=== PATIENT | female | born 1960 | race Caucasian/White ===

== ENCOUNTER 2017-07-05 12:02 | Day surgery (SDC) | payer OTHER ==
[2017-07-05] MEDS ORDERED: LACTATED RINGERS 1,000 ML IV ONE ×2 (12:13→13:06)
--- NOTE | 2017-07-05 12:36 | HISTORY & PHYSICAL EXAMINATION ---
HPI - History of Present Illness HPI Comment/Other: Patient here for colonoscopy for history of GI bleed: Mrs. Cherry Is here in consultation for a GI bleed. She states that approximately 2 weeks ago she was having her coffee in the morning and felt faint, flushed and nauseated and then had the urgency to have a bowel movement. When she had her bowel movement she noted multiple dark blood clots mixed with formed stool. This happened one additional time and she went to the emergency department. She was discharged home and had 2 subsequent episodes which were less bloody and not associated with any other symptoms. The bleeding has since stopped. She denies any associated diarrhea or severe abdominal pain with the bleeding.She states that approximately 2 months ago she was started on Metformin and since that time she has had cramping abdominal pain and loose stools. She has never had a colonoscopy. She has no family history of colon cancer or inflammatory bowel disease. To her knowledge she does not have any hemorrhoids and has never had any hemorrhoidal associated bleeding. She does have COPD and CHF. She was hospitalized in 2013 for CHF exacerbation and since the hospitalization she has been on Lasix and her symptoms have been well controlled. She does require oxygen at home and takes 2 L at night with her CPAP and Does require 3 L of oxygen during the day with exertion. She does continue to smoke smoking approximately half a pack per day. The patient additionally complains about an umbilical hernia which has been increasing in size of the past few years.Current Meds: ADULT ASPIRIN EC LOW STRENGTH 81 MG ORAL TABLET DELAYED RELEASE (ASPIRIN) take one tab by mouth daily [facility] FISH OIL 1000 MG ORAL CAPSULE (OMEGA-3 FATTY ACIDS) take one tab by mouth daily DAILY MULTIVITAMIN ORAL CAPSULE (MULTIPLE VITAMINS-MINERALS) take one tab by mouth daily LIQUAFIBER 5 GM/15ML ORAL LIQUID (FIBER) take two tabs by mouth daily METFORMIN HCL 500 MG ORAL TABLET (METFORMIN HCL) take one tab by mouth daily STIOLTO RESPIMAT 2.5-2.5 MCG/ACT INHALATION AEROSOL SOLUTION (TIOTROPIUM BROMIDE -OLODATEROL) take two puffs FUROSEMIDE 40 MG ORAL TABLET (FUROSEMIDE) take one tab by mouth daily WELLBUTRIN SR 150 MG ORAL TABLET EXTENDED RELEASE 12 HOUR (BUPROPION HCL) take one tab by mouth daily DILTIAZEM HCL ER 180 MG ORAL CAPSULE EXTENDED RELEASE 24 HOUR (DILTIAZEM HCL) take two tab by mouth daily SPIRONOLACTONE 25 MG ORAL TABLET (SPIRONOLACTONE) take one tab by mouth daily LOSARTAN POTASSIUM 100 MG ORAL TABLET (LOSARTAN POTASSIUM) take one tab by mouth daily Past Medical History: Reviewed history and no changes required: Congestive Heart Failure High Blood Pressure Shortness of Breath CPAP Machine Panic Attacks Claustrophobia DMII COPD Past Surgical History: Reviewed history and no changes required: Tonsilectomy Family History Summary: Reviewed history and no changes required: 05/30/2017 Mother () - Has Family History of Diabetes - Entered On: 05/30/2017 Social History: Reviewed history and no changes required: Risk Factors: Smoked Tobacco Use: Current every day smoker Cigarettes: Yes -- 0.5 pack(s) per day,Drug use: no Alcohol use: yes Type: red wine Exercise: no Review of Systems General Denies fever and weight loss. GI Complains of abdominal pain and hematochezia. CV Denies chest pains. Resp Complains of shortness of breath. Psych Complains of anxiety. Heme Complains of bleeding. Medications were reviewed with the patient during this visit. Allergies were reviewed with the patient during this visit. Allergies: ATENOLOL (ATENOLOL) (Severe) * CLONIDINE (Severe) Physical Exam General: normal appearance and obese. Lungs: Diminished breath sounds bilaterally Heart: regular rate and rhythm, S1, S2 without murmurs, rubs, gallops, or clicks Abdomen: bowel sounds positive; abdomen soft and non-tender without masses, organomegaly, or hernias noted Pulses: pulses normal in all 4 extremities Extremities: no clubbing, cyanosis, edema, or deformity noted with normal full range of motion of all joints Cervical Nodes: no significant adenopathy Psych: alert and cooperative; normal mood and affect; normal attention span and concentration Impression & Recommendations: Problem # 1: Hematochezia will proceed with colonoscopy PMH/PSH - Past Medical History Cardiovascular: positive: Congestive heart failure, Hypertension, Murmur, Arrhythmia Respiratory: positive: Asthma, COPD, Emphysema, Shortness of breath, Sleep apnea , CPAP use Endocrine/Autoimmune: positive: Type 2 diabetes GI: positive: GI bleed, Cholelithiasis, Other : positive: Frequency HEENT: positive: Chronic vision loss, Chronic sinusitis, Other Psych: positive: Anxiety, Panic attacks, Claustrophobia Musculoskeletal: positive: None Derm: positive: None MRSA Hx?: No - Past Surgical History HEENT: positive: Tonsil/Adenoidectomy Social & Family Hx - Social History ETOH Use: Wine Meds/Allgy - Home Medications Home Medications: Ambulatory Orders Medication Instructions Recorded Confirmed Aspirin [Aspirin EC] 81 mg PO DAILY 06/27/17 06/27/17 Bupropion HCl [Bupropion HCl Sr] 150 mg PO DAILY 06/27/17 06/27/17 Diltiazem HCl [Diltiazem ER] 180 mg PO BID 06/27/17 06/27/17 Furosemide 40 mg PO DAILY 06/27/17 06/27/17 Losartan [Cozaar] 100 mg PO DAILY 06/27/17 06/27/17 Multivitamin [Multiple Vitamins] 1 each PO BID 06/27/17 06/27/17 [place]-3/Dha/Epa/Fish Oil [Fish Oil 1 each PO DAILY 06/27/17 06/27/17 1,000 mg Softgel] Psyllium Husk [Fiber] 0.52 gm PO BID 06/27/17 06/27/17 Spironolactone 25 mg PO DAILY 06/27/17 06/27/17 - Allergies Allergies/Adverse Reactions: Allergies Allergy/AdvReac Type Severity Reaction Status Date / Time atenolol Allergy Anaphylaxis Verified 06/27/17 13:46 clonidine Allergy Hives Verified 06/27/17 13:46 metformin AdvReac GI symptoms Verified 06/27/17 13:46 Exam - Vital Signs Vital Signs: Vital Signs x48h Temp Pulse Resp BP Pulse Ox 07/05/17 12:18 36.8 C 105 H 16 152/94 H 92
[2017-07-05] MEDS ORDERED: LIDOCAINE-MPF 2% 5 ML VIAL IM ONE (13:00)
[2017-07-05] MEDS ORDERED: MIDAZOLAM 2 MG/2 ML VIAL IVP ONE (13:00)
[2017-07-05] MEDS ORDERED: PROPOFOL 200 MG/20 ML VIAL IVP ONE (13:00)
[2017-07-05 14:32] VITALS: BP 148/86
== END 2017-07-05 12:03 | disposition home or self-care (01) ==
LOC: SDS 12:02
PROVIDERS: ATTEND Surgery
PROC: 0DBN8ZX Excision of Sigmoid Colon, Via Natural or Artificial Opening Endoscopic, Diagnostic (ICD-10-PCS; 2017-07-05)
PROC: 0DBP8ZX Excision of Rectum, Via Natural or Artificial Opening Endoscopic, Diagnostic (ICD-10-PCS; 2017-07-05)
PROC: 0DBK8ZX Excision of Ascending Colon, Via Natural or Artificial Opening Endoscopic, Diagnostic (ICD-10-PCS; principal; 2017-07-05 09:45)
DX: D12.2 Benign neoplasm of ascending colon (principal); K64.8 Other hemorrhoids; K63.5 Polyp of colon; K92.1 Melena; K62.89 Other specified diseases of anus and rectum; K57.30 Diverticulosis of large intestine without perforation or abscess without bleeding; E11.9 Type 2 diabetes mellitus without complications; J44.9 Chronic obstructive pulmonary disease, unspecified; I11.0 Hypertensive heart disease with heart failure; I50.9 Heart failure, unspecified; Z79.84 Long term (current) use of oral hypoglycemic drugs; Z79.82 Long term (current) use of aspirin; F41.9 Anxiety disorder, unspecified; G47.30 Sleep apnea, unspecified; F17.210 Nicotine dependence, cigarettes, uncomplicated
CPT/HCPCS: 45380; J7120

== ENCOUNTER 2019-04-15 13:40 | Observation (INO) | payer OTHER ==
--- NOTE | 2019-04-15 13:51 | ED Physician Documentation ---
PD HPI GI BLEED - Stated complaint Stated Complaint: RECTAL BLEED - Chief complaint Chief Complaint: Abd Pain - History obtained from History obtained from: Patient - History of Present Illness Timing - onset: How many hours ago Timing - duration: Hours Timing - details: Abrupt onset Severity Comments: moderate, 6 bloody bowel movements Associated symptoms: Maroon stool, Abdominal pain. No: Vomiting, Coffee ground emesis, Hematemesis, Black/tarry stool, Diarrhea, Constipation, Chest pain, Fever, Dizzy, Near syncope / syncope Contributing factors: Other (prior hx of diverticulosis and GI bleeding, not anticoagulated). No: NSAID use, Anticoagulated Improved by: Other (nothing) Worsened by: Other (bowel movements) Similar symptoms before: Other (has a prior hx of GI bleeding in July 2017 and had a colonoscopy at that time demonstrating divertuclosis) Recently seen: Not recently seen Review of Systems Ten Systems: 10 systems reviewed and negative Constitutional: denies: Fever Cardiac: reports: Reviewed and negative. denies: Chest pain / pressure Respiratory: reports: Reviewed and negative GI: reports: Abdominal Pain, Bloody / black stool. denies: Abdominal Swelling, Nausea, Vomiting, Constipation, Diarrhea, Hematemesis : reports: Reviewed and negative Skin: reports: Reviewed and negative Musculoskeletal: reports: Reviewed and negative Neurologic: reports: Reviewed and negative Endocrine: denies: Easy bruising / bleeding Immunocompromised: reports: Reviewed and negative PD PAST MEDICAL HISTORY - Past Medical History Past Medical History: Yes Cardiovascular: Congestive heart failure, Hypertension, Murmur, Arrhythmia Respiratory: Asthma, COPD, Emphysema, Shortness of breath, Sleep apnea, CPAP use Endocrine/Autoimmune: Type 2 diabetes GI: GI bleed, Cholelithiasis, Other : Frequency HEENT: Chronic vision loss, Chronic sinusitis, Other Psych: Anxiety, Panic attacks, Claustrophobia Musculoskeletal: None Derm: None - Past Surgical History HEENT: Tonsil/Adenoidectomy - Present Medications Home Medications: Ambulatory Orders Medication Instructions Recorded Confirmed Aspirin [Aspirin EC] 81 mg PO QPM 06/27/17 04/15/19 Furosemide 40 mg PO DAILY 06/27/17 04/15/19 Losartan [Cozaar] 100 mg PO DAILY 06/27/17 04/15/19 Multivitamin [Multiple Vitamins] 1 tab PO DAILY 06/27/17 04/15/19 Spironolactone 25 mg PO DAILY 06/27/17 04/15/19 dilTIAZem HCl [Diltiazem ER] 180 mg PO BID 06/27/17 04/15/19 Bupropion HCl [Bupropion Xl] 150 mg PO DAILY 04/15/19 04/15/19 SITagliptin [Januvia] 100 mg PO QPM 04/15/19 04/15/19 Varenicline Tartrate [Chantix] 1 mg PO BID 04/15/19 04/15/19 - Allergies Allergies/Adverse Reactions: Allergies Allergy/AdvReac Type Severity Reaction Status Date / Time atenolol Allergy Anaphylaxis Verified 06/27/17 13:46 clonidine Allergy Hives Verified 06/27/17 13:46 metformin AdvReac GI symptoms Verified 06/27/17 13:46 PD ED PE NORMAL - Vitals Vital signs reviewed: Yes - General General: Alert and oriented X 3, No acute distress, Well developed/nourished - HEENT HEENT: Atraumatic, Moist mucous membranes, Pharynx benign - Neck Neck: Supple, no meningeal sign, No JVD - Cardiac Cardiac: RRR, No murmur, No gallop, No rub - Respiratory Respiratory: No respiratory distress, Clear bilaterally - Abdomen Abdomen: Soft, Non distended, Other (mild lower abdominal tenderness ) - Female Female : Deferred - Rectal Rectal: Deferred - Derm Derm: Normal color, Warm and dry, No rash - Extremities Extremities: No edema - Neuro Neuro: Alert and oriented X 3, Normal speech Eye Opening: Spontaneous Motor: Obeys Commands Verbal: Oriented GCS Score: 15 - Psych Psych: Normal mood, Normal affect PD ED PE EXPANDED - Rectal Rectal: Other (gross maroon stool present ) Results - Vitals Vitals: Vital Signs - 24 hr 04/15/19 04/15/19 13:45 14:29 Temperature 36.6 C Heart Rate 121 H 114 H Respiratory 18 19 Rate Blood Pressure 158/107 H 159/107 H O2 Saturation 91 L 93 Oxygen O2 Source Room air - Labs Labs: Laboratory Tests 04/15/19 04/15/19 04/15/19 14:20 14:20 14:20 WBC 10.5 RBC 4.92 Hgb 13.8 Hct 43.8 MCV 89.0 MCH 28.0 MCHC 31.5 L RDW 14.5 Plt Count 286 MPV 10.4 Neut # (Auto) 6.9 H Lymph # (Auto) 2.5 [place] # (Auto) 0.7 Eos # (Auto) 0.2 Baso # (Auto) 0.1 Absolute Nucleated RBC 0.00 Nucleated RBC % 0.0 PT 11.9 INR 1.0 APTT 30.7 Sodium 133 L Potassium 4.2 Chloride 95 L Carbon Dioxide 27 Anion Gap 11.0 BUN 21 H Creatinine 1.0 Estimated GFR (MDRD) 57 L Glucose 381 H Glycated Hemoglobin Estim Average Glucose Calcium 9.1 Total Bilirubin 0.3 AST 17 ALT 17 Alkaline Phosphatase 73 Total Protein 7.4 Albumin 3.6 Globulin 3.8 Albumin/Globulin Ratio 0.9 L Lipase 38 Blood Type Antibody Screen 04/15/19 04/15/19 14:20 14:20 WBC RBC Hgb Hct MCV MCH MCHC RDW Plt Count MPV Neut # (Auto) Lymph # (Auto) [place] # (Auto) Eos # (Auto) Baso # (Auto) Absolute Nucleated RBC Nucleated RBC % PT INR APTT Sodium Potassium Chloride Carbon Dioxide Anion Gap BUN Creatinine Estimated GFR (MDRD) Glucose Glycated Hemoglobin 10.6 H Estim Average Glucose 258 H Calcium Total Bilirubin AST ALT Alkaline Phosphatase Total Protein Albumin Globulin Albumin/Globulin Ratio Lipase Blood Type A POSITIVE Antibody Screen NEGATIVE PD MEDICAL DECISION MAKING - ED course Complexity details: reviewed old records, reviewed results, re-evaluated patient, considered differential, d/w patient, d/w healthcare management consultant ED course: ddx- Upper GI bleed, lower GI bleed, diverticulosis, AVM, hemorrhoids, bleeding ulcer, polyps, CA 59 y/o F with hx of prior Gi bleeding returns today with GI bleeding several bloody maroon colored bowel movements and some lower abdominal pain. No hematemesis or vomiting. No fever. Not anticoagulated. Stable blood pressure but pt is tachycardic. She also has a stable H&H, type and screen sent but pt unlikely to need blood transfusion at this time. Hx of diverticulosis causing bleeding thus suspect this is the most likely etiology. Discussed case with Dr. Angel and consulted Dr. Elizabeth who is in the OR but will likely scope tomorrow. Pt admitted to hospitalist. Departure - Departure Disposition: [facility] DC/Xfer Clinical Impression: GI bleeding Discharge Date/Time: 04/15/19 16:34
[2019-04-15 14:36] LABS: BASOPHILS # (AUTO) 0.1 10^3/uL (0.0-0.1); BASOPHILS % (AUTO) 0.8 %; EOSINOPHILS # (AUTO) 0.2 10^3/uL (0.0-0.7); EOSINOPHILS % (AUTO) 1.5 %; HGB - HEMOGLOBIN 13.8 g/dL (12.0-16.0); LYMPHOCYTES # (AUTO) 2.5 10^3/uL (1.5-3.5); LYMPHOCYTES % (AUTO) 24.2 %; MEAN CORPUSCULAR HGB CONC 31.5 g/dL (32.0-36.0); MEAN PLATELET VOLUME 10.4 fL (7.9-10.8); MONOCYTES # (AUTO) 0.7 10^3/uL (0.0-1.0); MONOCYTES % (AUTO) 6.6 %; NEUTROPHILS # (AUTO) 6.9 10^3/uL (1.5-6.6); PLT - PLATELET COUNT 286 10^3/uL (130-450); RED BLOOD COUNT 4.92 10^6/uL (4.20-5.40); RED CELL DISTRIBUTION WIDTH 14.5 % (12.0-15.0); WHITE BLOOD COUNT 10.5 x10^3/uL (4.8-10.8)
[2019-04-15 14:42] LABS: PT - PROTHROMBIN TIME 11.9 secs (9.9-12.6)
[2019-04-15 14:49] LABS: PARTIAL THROMBOPLASTIN TIME 30.7 secs (24.9-33.3)
[2019-04-15 14:54] LABS: ALBUMIN 3.6 g/dL (3.2-5.5); ALBUMIN/GLOBULIN RATIO 0.9 (1.0-2.2); BILIRUBIN,TOTAL 0.3 mg/dL (0.2-1.0); CALCIUM 9.1 mg/dL (8.5-10.3); TOTAL PROTEIN 7.4 g/dL (6.7-8.2)
[2019-04-15] MEDS ORDERED: ONDANSETRON 4 MG/2 ML VIAL IVP PRN (15:40)
[2019-04-15] MEDS ORDERED: ZOLPIDEM 5 MG TABLET PO PRN (15:40)
[2019-04-15] MEDS ORDERED: ACETAMINOPHEN 325 MG TABLET PO PRN (15:40)
[2019-04-15] MEDS ORDERED: SODIUM CHLORIDE FLUSH 0.9% 10 ML SYRINGE IVP PRN (15:40)
[2019-04-15] MEDS ORDERED: LOSARTAN 50 MG TABLET PO SCH (15:49)
[2019-04-15] MEDS ORDERED: INSULIN ASPART 300 UNIT/3 ML PEN SUBQ ONE (16:08)
[2019-04-15 16:10] LABS: HB2 TOTAL 13.7 g/dL; HEMOGLOBIN A1C 1.27 g/dL; HEMOGLOBIN A1C % 10.6 % (4.6-6.2)
[2019-04-15] MEDS ORDERED: ALBUTEROL NEB 2.5 MG/3 ML INH PRN (16:20)
--- NOTE | 2019-04-15 16:20 | HISTORY & PHYSICAL EXAMINATION ---
Chief Complaint - Chief Complaint Chief Complaint: GI bleed History of Present Illness - History of Present Illness HPI Comment/Other: Ms. Cherry is a 59-yrs-old female with a PMH significant for GI bleed, Congestive heart failure, Hypertension, Murmur, Arrhythmia, current cigarette smoker, Asthma, COPD, Emphysema, Shortness of breath, Sleep apnea, CPAP use, obesity, Type 2 diabetes, Cholelithiasis, Frequency, Chronic vision loss, Chronic sinusitis, Anxiety, Panic attacks, Claustrophobia, who present ER complain of GI bleed. pt report she had 4-5 times of fresh rectal bleed. she denies syncope, dizziness or shortness of breath, or chest pain. she report she had a similar episode on 2018. she had colonoscopy on that time. she was found to have polyps, severe diverticulosis and internal hemorrhoids. Biopsy revealed negative for carcinoma. pt's HGB is 13.8 today. Route lab test in ER reveals pt has 381 glucose. pt report she did not take insulin at home. Pt is afebrile but present tachycardia HR at 114, BP at 159/107, 93% sat on room air. GI surgeon was called. pt is admitted for GI bleed. History - Past Medical History Cardiovascular: reports: Congestive heart failure, Hypertension, Murmur, Arrhythmia Respiratory: reports: Asthma, COPD, Emphysema, Shortness of breath, Sleep apnea, CPAP use Endocrine/Autoimmune: reports: Type 2 diabetes GI: reports: GI bleed, Cholelithiasis, Other : reports: Frequency HEENT: reports: Chronic vision loss, Chronic sinusitis, Other Psych: reports: Anxiety, Panic attacks, Claustrophobia Musculoskeletal: reports: None Derm: reports: None MRSA Hx?: No - Past Surgical History HEENT: reports: Tonsil/Adenoidectomy Meds/Allgy - Home Medications Home Medications: Ambulatory Orders Medication Instructions Recorded Confirmed Aspirin [Aspirin EC] 81 mg PO DAILY 06/27/17 07/05/17 Bupropion HCl [Bupropion HCl Sr] 150 mg PO DAILY 06/27/17 07/05/17 Furosemide 40 mg PO DAILY 06/27/17 07/05/17 Losartan [Cozaar] 100 mg PO DAILY 06/27/17 07/05/17 Multivitamin [Multiple Vitamins] 1 each PO BID 06/27/17 07/05/17 [place]-3/Dha/Epa/Fish Oil [Fish Oil 1 each PO DAILY 06/27/17 07/05/17 1,000 mg Softgel] Psyllium Husk [Fiber] 0.52 gm PO BID 06/27/17 07/05/17 Spironolactone 25 mg PO DAILY 06/27/17 07/05/17 dilTIAZem HCl [Diltiazem ER] 180 mg PO BID 06/27/17 07/05/17 - Allergies Allergies/Adverse Reactions: Allergies Allergy/AdvReac Type Severity Reaction Status Date / Time atenolol Allergy Anaphylaxis Verified 06/27/17 13:46 clonidine Allergy Hives Verified 06/27/17 13:46 metformin AdvReac GI symptoms Verified 06/27/17 13:46 Review of Systems - Constitutional Constitutional: denies: Fatigue, Fever, Chills, Malaise, Weakness, Poor appetite, Diaphoresis, Night sweats - Eyes Eyes: denies: Pain, Irritation, Amaurosis, Blurred vision, Spots in vision, Field loss, Vision loss, Dipolpia - Ears, Nose & Throat Ears, Nose & Throat: denies: Ear pain, Hearing loss, Hearing aids, Tinnitus, Vertigo, Nasal pain, Nasal discharge, Nosebleeds, Nasal obstruction, Nasal congestion, Postnasal drainage, Dentures, Sore throat, Hoarseness, Mouth lesions, Bleeding gums - Cardiovascular Cariovascular: denies: Irregular heart rate, Palpitations, Chest pain, Edema, Lightheadedness, Syncope, Exertional dyspnea, Decr. exercise tolerance - Respiratory Respiratory: denies: Cough, Sputum production, Wheezing, Snoring, Hemoptysis, Orthopnea, SOB at rest, SOB with exertion - Gastrointestinal Gastrointestinal: reports: Rectal bleeding, Bloody stools. denies: Abdominal pain, Abdominal distention, Constipation, Diarrhea, Change in bowel habits, Black stools, Nausea, Vomiting, Bile emesis, Moris blood emesis, Coffee grounds emesis, Reflux/heartburn, Bloating, Poor appetite - Genitourinary Genitourinary: reports: Frequency. denies: Dysuria, Urgency, Hematuria, Incontinence, Flank pain, Nocturia, Urethral discharge - Musculoskeletal Musculoskeletal: denies: Muscle pain, Back pain, Muscle aches, Stiffness, Limited range of motion, Muscle weakness, Gout, Joint pain - Integumentary Integumentary: denies: Rash, Pruritis, Lesions, Dryness, Lumps, Acne, Pigment changes, Nail changes - Neurological Neurological: denies: General weakness, Focal weakness, Headache, Dizziness, Numbness, Memory problems, Pre-existing deficit, Abnormal gait, Seizures, Incoordination, Slurred speech - Psychiatric Psychiatric: denies: Depression, Anxiety, Suicidal, Delusions, Hallucinations, Homicidal - Endocrine Endocrine: denies: Polyuria, Polydypsia, Polyphagia, Intolerance to cold - Hematologic/Lymphatic Hematologic/Lymphatic: denies: Anemia, Bruising, Petechiae, Blood clots, Lymphadenopathy, Bleeding tendencies Exam - Vital Signs Reviewed Vital Signs: Yes Vital Signs: Vital Signs x48h Temp Pulse Resp BP Pulse Ox 04/15/19 16:00 115 H 26 H 163/113 H 95 04/15/19 14:29 114 H 19 159/107 H 93 04/15/19 13:45 36.6 C 121 H 18 158/107 H 91 L - Physical Exam General Appearance: positive: No acute distress, Alert. negative: Lethargic Eyes Bilateral: positive: Normal inspection, PERRL, EOMI, No lid inflammation ENT: positive: ENT inspection nml, Pharynx nml, No signs of dehydration. negative: Purulent nasal drainage, Oral lesions Neck: positive: Nml inspection, Thyroid nml, No JVD, Trachea midline. negative: Thyromegaly, Lymphadenopathy (R), Lymphadenopathy (L), Stiff neck, Tracheal deviation Respiratory: positive: Chest non-tender, No respiratory distress, Breath sounds nml. negative: Wheezes, Rales, Rhonchi Cardiovascular: positive: Regular rate & rhythm, No gallop, Tachycardia. ne gative: Irregularly irregular, Extrasystoles, Bradycardia, JVD present Peripheral Pulses: positive: 2+ Abdomen: positive: Non-tender, No organomegaly, Nml bowel sounds. negative: Tenderness, Guarding, Rebound Back: positive: Nml inspection. negative: CVA tenderness (R), CVA tenderness (L) Skin: positive: Color nml, No rash, Warm, Dry. negative: Cyanosis, Diaphoresis, Pallor Extremities: positive: Non-tender, Full ROM, Nml appearance. negative: Calf tenderness, Jovi's sign/cords Neurologic/Psychiatric: positive: Oriented x3, Motor nml, Sensation nml, Mood/affect nml. negative: Weakness, Sensory loss, Facial droop, Slurred/abnml speech, Depressed mood/affect Sepsis Event Note (H) - Evaluation Current Stage of Sepsis: Ruled out Conclusion/Plan - Problem List (1) GI bleeding Conclusion/Plan: pt has recurrent rectal bleed. HGB is 13.8 today. consulted with GI surgeon, bowel preparing for colonoscopy and EGD H&H monitor HGB NPO after midnight, IVF after midnight (2) Diabetes Conclusion/Plan: pt has hyperglycemia with glucose 381. pt denies taking insulin in home and decline to take insulin at home when she d/c to home 10 unit of Novolog once for hyperglycemia slide scale, ACHS, hypoglycemia protocol check A1C (3) HTN (hypertension) Conclusion/Plan: pt has elevated BP, will resume her home meds, Cardizem, Losartan, and spironolactine vital monitor and tele monitor (4) Tachycardia with heart rate 100-120 beats per minute Conclusion/Plan: pt has tachycardia at ER. pt denies chest pain, palpitation. order EKG, is pending. pt has home meds Cardizem, will resume. (5) History of COPD Conclusion/Plan: pt is stable without acute respiratory distress. pt is current smoker, she has hx of asthma, COPD start with PRN Xopenex and Duoneb (6) Currently smokes tobacco Conclusion/Plan: pt report she is current cigarette smoker, she decline Nicotine Patch. pt is advised to quit smoking. (7) Obesities, morbid Conclusion/Plan: pt's BMI is 41.8. pt is advise for loss of weight. (8) Anxiety and depression Conclusion/Plan: pt has home meds of Bupropion, will resume (9) Full code status Conclusion/Plan: pt request full code. - Lab Results Fish Bones: 04/15/19 14:20 04/15/19 14:20 Core Measures - Anticipated LOS I expect patient to be DC'd or transferred within 96 hours.: Yes - DVT/VTE - Prophylaxis VTE/DVT Device ordered at admit?: Yes VTE/DVT Prophylaxis med ordered at admit?: Yes
[2019-04-15] MEDS ORDERED: IPRATROPIUM/ALBUTEROL 3 ML NEB INH PRN (16:33)
[2019-04-15] MEDS: diltiaZEM CD 180 MG CAPSULE PO SCH ×2 (17:02→21:22)
[2019-04-15] MEDS ORDERED: SPIRONOLACTONE 25 MG TABLET PO SCH (18:00)
[2019-04-15] MEDS: INSULIN ASPART 300 UNIT/3 ML PEN SUBQ SCH ×2 (18:03→21:24)
[2019-04-15] MEDS: SODIUM CHLORIDE FLUSH 0.9% 10 ML SYRINGE IVP SCH (18:04)
[2019-04-15] MEDS: PANTOPRAZOLE 40 MG VIAL IVP SCH (18:19)
[2019-04-15] MEDS ORDERED: diltiaZEM INJ 5 MG/ML VIAL IVP ONE (18:19)
[2019-04-15] MEDS: SODIUM/POTASSIUM/MAG SULFATES 354 ML PREP KIT PO SCH (18:29)
[2019-04-15] MEDS ORDERED: LEVALBUTEROL 1.25 MG/3 ML NEB INH PRN (19:00)
[2019-04-15] MEDS ORDERED: PANTOPRAZOLE 40 MG VIAL IVP SCH (21:00)
[2019-04-15 22:12] LABS: HGB - HEMOGLOBIN 12.8 g/dL (12.0-16.0)
[2019-04-16] MEDS: SODIUM CHLORIDE 0.9% 1,000 ML IV SCH ×2 (01:12→15:23)
[2019-04-16] MEDS: SODIUM CHLORIDE FLUSH 0.9% 10 ML SYRINGE IVP SCH ×3 (01:13→16:44)
[2019-04-16] MEDS: SODIUM/POTASSIUM/MAG SULFATES 354 ML PREP KIT PO SCH (04:15)
[2019-04-16 04:56] LABS: BASOPHILS # (AUTO) 0.1 10^3/uL (0.0-0.1); BASOPHILS % (AUTO) 0.6 %; EOSINOPHILS # (AUTO) 0.2 10^3/uL (0.0-0.7); EOSINOPHILS % (AUTO) 1.6 %; HGB - HEMOGLOBIN 13.4 g/dL (12.0-16.0); LYMPHOCYTES # (AUTO) 3.2 10^3/uL (1.5-3.5); LYMPHOCYTES % (AUTO) 26.2 %; MEAN CORPUSCULAR HEMOGLOBIN 28.2 pg (27.0-31.0); MEAN CORPUSCULAR HGB CONC 31.6 g/dL (32.0-36.0); MEAN CORPUSCULAR VOLUME 89.3 fL (81.0-99.0); MEAN PLATELET VOLUME 10.2 fL (7.9-10.8); MONOCYTES # (AUTO) 0.9 10^3/uL (0.0-1.0); MONOCYTES % (AUTO) 7.6 %; NEUTROPHILS # (AUTO) 7.7 10^3/uL (1.5-6.6); NEUTROPHILS % (AUTO) 63.3 %; PLT - PLATELET COUNT 267 10^3/uL (130-450); RED BLOOD COUNT 4.75 10^6/uL (4.20-5.40); RED CELL DISTRIBUTION WIDTH 14.6 % (12.0-15.0); WHITE BLOOD COUNT 12.2 x10^3/uL (4.8-10.8)
[2019-04-16 05:44] LABS: CALCIUM 9.3 mg/dL (8.5-10.3); CREATININE 0.9 mg/dL (0.4-1.0)
[2019-04-16] MEDS: INSULIN ASPART 300 UNIT/3 ML PEN SUBQ SCH ×3 (07:59→17:07)
[2019-04-16] MEDS: diltiaZEM CD 180 MG CAPSULE PO SCH (07:59)
[2019-04-16] MEDS: PANTOPRAZOLE 40 MG VIAL IVP SCH (08:34)
[2019-04-16] MEDS ORDERED: LOSARTAN 50 MG TABLET PO SCH (09:00)
[2019-04-16] MEDS ORDERED: buPROPion XL 150 MG TABLET PO SCH (09:00)
[2019-04-16] MEDS ORDERED: VARENICLINE TARTRATE 1 MG PO SCH (09:00)
[2019-04-16] MEDS ORDERED: SPIRONOLACTONE 25 MG TABLET PO SCH (09:00)
[2019-04-16] MEDS ORDERED: hydrALAZINE INJ 20 MG/ML VIAL IVP PRN (09:12)
--- NOTE | 2019-04-16 09:55 | XRAY Report ---
Reason: sob Procedure Date: 04/16/2019 Accession Number: [id number] / [id number] Procedure: XR - Chest 1 View X-Ray CPT Code: 98419 Final Report FULL RESULT: EXAM: CHEST RADIOGRAPHY EXAM DATE: 04/16/2019 08:17 AM. CLINICAL HISTORY: Shortness of breath. COMPARISON: None. TECHNIQUE: 1 view. FINDINGS: Radiograph is limited by under penetration. Lungs/Pleura: With limitations of the exam, no definite lobar consolidation, pleural effusion or pneumothorax. No pulmonary edema detected. Mediastinum: Upper enlargement of the cardiomediastinal silhouette may be due to AP portable technique, mild calcifications of the aortic arch are noted. Other: None. IMPRESSION: Limited exam with no definite cardiopulmonary abnormality. RADIA
--- NOTE | 2019-04-16 12:14 | CONSULTATION NOTE ---
Referring Provider Name of Referring Provider:: Sarina Pimentel Consult Date: 04/16/19 Chief Complaint - Chief Complaint Chief Complaint: Bright red blood per rectum History of Present Illness - Admitted From Admitted From:: ED - History Obtained From Records Reviewed: Providers's notes History obtained from: Patient Exam Limitations: None - History of Present Illness HPI Comment/Other: Kaye is an unfortunate 59 year old lady who presented to the ED last evening with bright red blood per rectum. She says this has happened in the past. She had a colonoscopy about 18 months ago at [facility] and was diagnosed with diverticulosis and colon polyps. She has never had an EGD. She reports she has had blood per rectum in the past but never as much as she experienced on this occassion. She is afebrile. She denies abdominal pain. Kaye has multiple confounding medical issues including tobacco dependence and associated COPD, vascular disease, CHF, and uncontrolled diabetes. Our service has been consulted regarding colonoscopy and EGD. History - Past Medical History Cardiovascular: reports: Congestive heart failure, Hypertension, Murmur, Arrhythmia Respiratory: reports: Asthma, COPD, Emphysema, Shortness of breath, Sleep apnea, CPAP use Endocrine/Autoimmune: reports: Type 2 diabetes GI: reports: GI bleed, Cholelithiasis, Other : reports: Frequency HEENT: reports: Chronic vision loss, Chronic sinusitis, Other Psych: reports: Anxiety, Panic attacks, Claustrophobia Musculoskeletal: reports: None Derm: reports: None MRSA Hx?: No - Past Surgical History HEENT: reports: Tonsil/Adenoidectomy Meds/Allgy - Home Medications Home Medications: Ambulatory Orders Medication Instructions Recorded Confirmed Aspirin [Aspirin EC] 81 mg PO QPM 06/27/17 04/15/19 Furosemide 40 mg PO DAILY 06/27/17 04/15/19 Losartan [Cozaar] 100 mg PO DAILY 06/27/17 04/15/19 Multivitamin [Multiple Vitamins] 1 tab PO DAILY 06/27/17 04/15/19 Spironolactone 25 mg PO DAILY 06/27/17 04/15/19 dilTIAZem HCl [Diltiazem ER] 180 mg PO BID 06/27/17 04/15/19 Bupropion HCl [Bupropion Xl] 150 mg PO DAILY 04/15/19 04/15/19 SITagliptin [Januvia] 100 mg PO QPM 04/15/19 04/15/19 Varenicline Tartrate [Chantix] 1 mg PO BID 04/15/19 04/15/19 - Allergies Allergies/Adverse Reactions: Allergies Allergy/AdvReac Type Severity Reaction Status Date / Time atenolol Allergy Anaphylaxis Verified 06/27/17 13:46 clonidine Allergy Hives Verified 06/27/17 13:46 metformin AdvReac GI symptoms Verified 06/27/17 13:46 Review of Systems - Constitutional Constitutional: reports: Fatigue. denies: Fever, Chills, Poor appetite, Diaphoresis, Night sweats - Eyes Eyes: denies: Pain, Blurred vision - Ears, Nose & Throat Ears, Nose & Throat: denies: Ear pain, Tinnitus, Vertigo - Cardiovascular Cariovascular: reports: Edema. denies: Irregular heart rate, Palpitations, Chest pain - Respiratory Respiratory: denies: Cough - Gastrointestinal Gastrointestinal: reports: Black stools, Bloody stools. denies: Abdominal pain, Abdominal distention, Constipation, Nausea, Vomiting - Genitourinary Genitourinary: denies: Dysuria, Frequency - Musculoskeletal Musculoskeletal: reports: Muscle pain, Back pain, Muscle aches, Stiffness, Joint pain - Integumentary Integumentary: denies: Rash, Pruritis - Neurological Neurological: denies: General weakness, Focal weakness, Headache - Endocrine Endocrine: denies: Polyuria, Polydypsia - Hematologic/Lymphatic Hematologic/Lymphatic: denies: Anemia, Bruising - All Other Systems All Other Systems: reports: Reviewed and negative Exam - Vital Signs Reviewed Vital Signs: Yes Vital Signs: Vital Signs x48h Temp Pulse Pulse Resp BP Pulse Ox 04/16/19 10:16 162/108 H 04/16/19 07:50 36.8 C 113 H 16 198/100 H 95 04/16/19 07:30 102 H 16 04/16/19 04:21 36.4 C L 101 H 18 161/108 H 93 - Physical Exam General Appearance: positive: No acute distress, Alert Eyes Bilateral: positive: Normal inspection, PERRL, EOMI ENT: positive: ENT inspection nml, Pharynx nml, No signs of dehydration Neck: positive: Nml inspection, Thyroid nml, No JVD, Trachea midline Respiratory: positive: Chest non-tender, No respiratory distress, Wheezes (scattered expiratory wheezes) Cardiovascular: positive: Regular rate & rhythm Peripheral Pulses: positive: 0 Abdomen: positive: Non-tender, Nml bowel sounds, Mass (Large, incarcerated umbilical hernia). negative: Guarding, Rebound Back: negative: CVA tenderness (R), CVA tenderness (L) Skin: positive: Color nml, No rash Extremities: positive: Non-tender, Nml appearance Neurologic/Psychiatric: positive: CN's nml (2-12) Conclusion/Plan - Diagnosis Diagnosis: Gastrointestinal Hemorrhage - Plan Plan: Likely a lower GI source but as the patient admits to both black stools and bright red blood per rectum, I have recommended EGD as well as colonoscopy. The patient understands that she is a poor candidate for any invasive procedure due to the status of her overall health. She understands that this procedure involves risk and she has chosen to accept that risk. The procedure has been scheduled. - Lab Results Fish Bones: 04/16/19 04:45 04/16/19 04:45
--- NOTE | 2019-04-16 14:40 | ANESTHESIA ---
Pre-Anesthesia VS, & Labs - Diagnosis Diagnosis Gastrointestinal Hemorrhage - Procedure EGD/colonoscopy Vital Signs: Temp Pulse Resp BP Pulse Ox 36.4 C L 90 20 167/96 H 92 04/16/19 13:00 04/16/19 13:00 04/16/19 13:00 04/16/19 13:00 04/16/19 13:00 Height 5 ft 5 in Weight (kg) 114 kg Body Mass Index 41.8 - Is Patient ?: No - Lab Results Current Lab Results: Laboratory Tests 04/16/19 11:37: POC Whole Bld Glucose 219 H 04/16/19 07:45: POC Whole Bld Glucose 244 H 04/16/19 04:45: Sodium 141, Potassium 3.8, Chloride 97 L, Carbon Dioxide 32, Anion Gap 12.0, BUN 19, Creatinine 0.9, Estimated GFR (MDRD) 64 L, Glucose 241 H , Calcium 9.3 04/16/19 04:45: WBC 12.2 H, RBC 4.75, Hgb 13.4, Hct 42.4, MCV 89.3, MCH 28.2, MCHC 31.6 L, RDW 14.6, Plt Count 267, MPV 10.2, Neut # (Auto) 7.7 H, Lymph # (Auto) 3.2, Preble # (Auto) 0.9, Eos # (Auto) 0.2, Baso # (Auto) 0.1, Absolute Nucleated RBC 0.00, Nucleated RBC % 0.0 04/15/19 22:03: Blood Type Recheck A POSITIVE 04/15/19 22:03: Hgb 12.8, Hct 40.9 04/15/19 21:03: POC Whole Bld Glucose 288 H 04/15/19 17:02: POC Whole Bld Glucose 313 H 04/15/19 14:20: Glycated Hemoglobin 10.6 H, Estim Average Glucose 258 H 04/15/19 14:20: Blood Type A POSITIVE, Antibody Screen NEGATIVE 04/15/19 14:20: Sodium 133 L, Potassium 4.2, Chloride 95 L, Carbon Dioxide 27, Anion Gap 11.0, BUN 21 H, Creatinine 1.0, Estimated GFR (MDRD) 57 L, Glucose 381 H, Calcium 9.1, Total Bilirubin 0.3, AST 17, ALT 17, Alkaline Phosphatase 73, Total Protein 7.4, Albumin 3.6, Globulin 3.8, Albumin/Globulin Ratio 0.9 L, Lipase 38 04/15/19 14:20: PT 11.9, INR 1.0, APTT 30.7 04/15/19 14:20: WBC 10.5, RBC 4.92, Hgb 13.8, Hct 43.8, MCV 89.0, MCH 28.0, MCHC 31.5 L, RDW 14.5, Plt Count 286, MPV 10.4, Neut # (Auto) 6.9 H, Lymph # (Auto) 2.5, Preble # (Auto) 0.7, Eos # (Auto) 0.2, Baso # (Auto) 0.1, Absolute Nucleated RBC 0.00, Nucleated RBC % 0.0 Lab results reviewed: Yes Fish Bones: 04/16/19 04:45 04/16/19 04:45 Home Medications and Allergies Home Medications: Ambulatory Orders Bupropion HCl [Bupropion Xl] 150 mg PO DAILY 04/15/19 SITagliptin [Januvia] 100 mg PO QPM 04/15/19 Varenicline Tartrate [Chantix] 1 mg PO BID 04/15/19 Active Medications Acetaminophen (Tylenol) 650 mg PO Q4HR PRN PRN Reason: Pain 1 to 4 Last Admin: 04/16/19 04:15 Dose: 650 mg Albuterol/Ipratropium (Duoneb) 3 ml INH RTQID PRN PRN Reason: Shortness of Air/Wheezing Bupropion HCl (Wellbutrin Xl) 150 mg PO DAILY [facility] Last Admin: 04/16/19 08:34 Dose: 150 mg Diltiazem HCl (Cardizem Cd) 180 mg PO BID [facility] Last Admin: 04/16/19 07:59 Dose: 180 mg Hydralazine HCl (Apresoline Inj) 10 mg IVP QID PRN PRN Reason: Hypertensive Emergency Sodium Chloride (Normal Saline 0.9%) 1,000 mls @ 83.3 mls/hr IV .Q12H1M [facility] Stop: 04/17/19 01:00 Last Infusion: 04/16/19 13:55 Dose: Infused Insulin Aspart (Novolog) 1 - 9 unit SUBQ 0800,1200,1700,2100 [facility]; Protocol Last Admin: 04/16/19 13:54 Dose: Not Given Levalbuterol HCl (Xopenex) 1.25 mg INH RTQ4H PRN PRN Reason: Shortness of Air/Wheezing Losartan Potassium (Cozaar) 100 mg PO DAILY [facility] Last Admin: 04/16/19 08:34 Dose: 100 mg (Varenicline Tartrate [Chantix] 1 Mg) Tab 1 mg PO BID [facility] Last Admin: 04/16/19 10:41 Dose: Not Given Ondansetron HCl (Zofran Inj) 4 mg IVP Q6HR PRN PRN Reason: Nausea / Vomiting Pantoprazole Sodium (Protonix) 40 mg IVP DAILY [facility] Last Admin: 04/16/19 08:34 Dose: 40 mg Sodium Chloride (Normal Saline Flush 0.9%) 10 ml IVP PRN PRN PRN Reason: NEEDED PER PROVIDER ORDERS Last Admin: 04/15/19 18:19 Dose: 10 ml Sodium Chloride (Normal Saline Flush 0.9%) 10 ml IVP 0100,0900,1700 [facility] Last Admin: 04/16/19 08:35 Dose: 10 ml Spironolactone (Aldactone) 25 mg PO DAILY [facility] Last Admin: 04/16/19 08:34 Dose: 25 mg Zolpidem Tartrate (Ambien) 5 mg PO QPM PRN PRN Reason: Insomnia Aspirin [Aspirin EC] 81 mg PO QPM 06/27/17 Furosemide 40 mg PO DAILY 06/27/17 Losartan [Cozaar] 100 mg PO DAILY 06/27/17 Multivitamin [Multiple Vitamins] 1 tab PO DAILY 06/27/17 Spironolactone 25 mg PO DAILY 06/27/17 dilTIAZem HCl [Diltiazem ER] 180 mg PO BID 06/27/17 Bupropion HCl [Bupropion Xl] 150 mg PO DAILY 04/15/19 SITagliptin [Januvia] 100 mg PO QPM 04/15/19 Varenicline Tartrate [Chantix] 1 mg PO BID 04/15/19 Allergies/Adverse Reactions: Allergies Allergy/AdvReac Type Severity Reaction Status Date / Time atenolol Allergy Anaphylaxis Verified 06/27/17 13:46 clonidine Allergy Hives Verified 06/27/17 13:46 metformin AdvReac GI symptoms Verified 06/27/17 13:46 Anes History & Medical History - Anesthetic History Anesthesia Complications: reports: No previous complications Family history of Anesthesia Complications: Denies Family history of Malignant Hyperthermia: Denies - Medical History Cardiovascular: reports: Congestive heart failure, Hypertension, Murmur, Arrhythmia Pulmonary: reports: Asthma, COPD, Emphysema, Shortness of breath, Sleep apnea, CPAP use, Other (Home oxygen at 3lpm) Gastrointestinal: reports: GI bleed, Cholelithiasis, Other Urinary: reports: Frequency Neuro: reports: None Musculoskeletal: reports: None Endocrine/Autoimmune: reports: Type 2 diabetes Blood Disorders: reports: None Skin: reports: None Smoking Status: Current every day smoker Psychosocial: reports: No issues indicated - Surgical History Eyes Ears Nose Throat (EENT): Tonsil/Adenoidectomy Exam General: Alert, Oriented x3, Cooperative Dental: Partials Upper Mouth Opening: Greater than 4 Fingerbreadths Mallampati classification: II Thyromental Distance: 4-6 cm Cardiovascular: Regular rate Neurological: Normal speech Mental/Cognitive Status: Alert/Oriented X3 Cognitive Status: Within normal limits Plan Anesthesia Type: Total IV Consent for Procedure(s) Verified and Reviewed: Yes Code Status: Attempt Resuscitation ASA classification: 3-Severe systemic disease Is this case an emergency?: Yes
[2019-04-16 15:53] LABS: BILIRUBIN,URINE NEGATIVE (NEGATIVE); GLUCOSE, URINE (UA) NEGATIVE (NEGATIVE); KETONES,URINE (UA) TRACE mg/dL (NEGATIVE); LEUKOCYTE ESTERASE, URINE NEGATIVE (NEGATIVE); NITRITE,URINE NEGATIVE (NEGATIVE); OCCULT BLOOD,URINE NEGATIVE (NEGATIVE); PROTEIN,URINE TRACE mg/dL (NEGATIVE); UROBILINOGEN,URINE 0.2 (NORMAL) E.U./dL (NORMAL)
[2019-04-16] MEDS ORDERED: LACTATED RINGERS 1,000 ML IV ONE (16:03)
[2019-04-16 16:05] LABS: BACTERIA,URINE Moderate /HPF (None Seen); CLARITY,URINE HAZY (CLEAR); RBC,URINE 0-5 /HPF (0-5); SQUAMOUS EPITHELIAL CELL,UR MOD Squamous (<= Few)
[2019-04-16 17:10] VITALS: BP 156/84
--- NOTE | 2019-04-16 17:10 | Discharge Plan ---
Discharge Plan Problem Reviewed?: Yes Disposition: Against Medical Advice Condition: Poor Diet: Diabetic Activity Restrictions: Activity as Tolerated Shower Restrictions: No (fall precaution) Instruction Topics: Bleeding Gastrointestinal Health Concerns: AMA, GI bleed Plan of Treatment: you really want to go to home. Surgeon Dr. Elizabeth and me advise you stay hospital, we will monitor her closely, since you still complain you have GI bleeding on today. Dr. Elizabeth did colonoscopy for you today and you declined to have EGD on today. you was informed in your colonoscopy result, you was found you has no acute bleed site but you has many of diverticulosis which could cause your bleeding. you was advised if you continue to have GI bleeding, we might transfer you to another hospital for high level of care. But you refused to stay hospital any more. you was advised the risks of AMA. But you still signed AMA and left hospital. Care Goals: stabilization and stop of her GI bleeding Assessment: discussed care plan with you, but you signed AMA and left hospital Additional Instructions or Follow Up instructions: you may followup your PCP in one week. Should your symptoms return or worsen, you may present ER or call 911 for help. No Smoking: If you smoke, Please STOP! Call for help.
[2019-04-16] MEDS ORDERED: PROPOFOL 200 MG/20 ML VIAL IVP ONE (17:37)
[2019-04-16] MEDS ORDERED: MIDAZOLAM 2 MG/2 ML VIAL IVP ONE (17:37)
--- NOTE | 2019-04-16 17:48 | DISCHARGE SUMMARY ---
"Discharge Summary Admit Date: 04/15/19 Discharge Date: 04/16/19 Discharging Provider: LEPE Condition at Discharge: Poor Discharge Disposition: 07 Against Medical Advice Discharge Facility Name: home - DIAGNOSES Admission Diagnoses: (1) GI bleeding (2) Diabetes (3) HTN (hypertension) (4) Tachycardia with heart rate 100-120 beats per minute (5) History of COPD (6) Currently smokes tobacco (7) Obesities, morbid (8) Anxiety and depression Discharge Diagnoses with Status of Each Condition: (1) AMA she request to sign AMA to go to home. I asked pt if we can do any better to let she have the best experience in the hospital. but she did not tell me and nurse what is reason she want to sign AMA and left hospital. pt told me she still had GI bleeding at her morning bowel movement. I hope she still stay overnight to monitor her or possible to transfer her to high level care. pt had colonoscopy done at the afternoon but pt refused to have EGD per surgeon told me. Surgeon report she did not find acute bleeding site in pt's colonoscopy but did find pt has many diverticulosis. Surgeon told me, overnight monitor pt if pt still has GI bleeding, then pt might need transfer to another hospital for high level of care. I told surgeon's decision to pt, and pt also directly talked with surgeon by my phone as well. pt requested AMA and left hospital. I clearly explained to pt the medical risk of AMA and possible financial responsibility from AMA. pt state she understood all risks, she state if she still has GI bleeding, she will go to ER immediately. (2) GI bleeding pt's HGB is stable. pt told me she still had GI bleeding at her morning bowel movement.pt requested AMA and left hospital. I clearly explained to pt the medical risk of AMA and possible financial responsibility from AMA. pt state she understood all risks, she state if she still has GI bleeding, she will go to ER immediately. pt had colonoscopy done at the afternoon but pt refused to have EGD per surgeon told me. Surgeon report she did not find acute bleeding site in pt's colonoscopy but did find pt has many diverticulosis. (3) Diabetes pt's A1C is 10.6. pt refused to have insulin at home per she told me. pt signed AMA and left hospital. advise pt followup her PCP closely to manage her diabetes (4) HTN (hypertension) stable (5) Tachycardia with heart rate 100-120 beats per minute resolved/stable. (6) History of COPD stable (7) Currently smokes tobacco pt took Chantix (8) Obesities, morbid advise pt loss of weight (9) Anxiety and depression stable - HPI History of Present Illness: Ms. Cherry is a 59-yrs-old female with a PMH significant for GI bleed, Congestive heart failure, Hypertension, Murmur, Arrhythmia, current cigarette smoker, Asthma, COPD, Emphysema, Shortness of breath, Sleep apnea, CPAP use, obesity, Type 2 diabetes, Cholelithiasis, Frequency, Chronic vision loss, Chronic sinusitis, Anxiety, Panic attacks, Claustrophobia, who present ER complain of GI bleed. pt report she had 4-5 times of fresh rectal bleed. she denies syncope, dizziness or shortness of breath, or chest pain. she report she had a similar episode on 2018. she had colonoscopy on that time. she was found to have polyps, severe diverticulosis and internal hemorrhoids. Biopsy revealed negative for carcinoma. pt's HGB is 13.8 today. Route lab test in ER reveals pt has 381 glucose. pt report she did not take insulin at home. Pt is afebrile but present tachycardia HR at 114, BP at 159/107, 93% sat on room air. GI surgeon was called. pt is admitted for GI bleed. - CONSULTS | PROCEDURES Consultations: Dr. Elizabeth Procedures: colonoscopy. pt refused to EGD - HOSPITAL COURSE Hospital Course: pt was admitted for GI bleeding. pt had colonoscopy done but pt refused to have EGD per surgeon told me. Surgeon report she did not find acute bleeding site in pt's colonoscopy but did find pt has many diverticulosis. pt told me she still had GI bleeding at her morning bowel movement. pt requested AMA and left hos pital. I clearly explained to pt the medical risk of AMA and possible financial responsibility from AMA. pt state she understood all risks, she state if she still has GI bleeding, she will go to ER immediately. The detail hospital course is as the below: (1) AMA she request to sign AMA to go to home. I asked pt if we can do any better to let she have the best experience in the hospital. but she did not tell me and nurse what is reason she want to sign AMA and left hospital. pt told me she still had GI bleeding at her morning bowel movement. I hope she still stay overnight to monitor her or possible to transfer her to high level care. pt had colonoscopy done at the afternoon but pt refused to have EGD per surgeon told me. Surgeon report she did not find acute bleeding site in pt's colonoscopy but did find pt has many diverticulosis. Surgeon told me, overnight monitor pt if pt still has GI bleeding, then pt might need transfer to another hospital for high level of care. I told surgeon's decision to pt, and pt also directly talked with surgeon by my phone as well. pt requested AMA and left hospital. I clearly explained to pt the medical risk of AMA and possible financial responsibility from AMA. pt state she understood all risks, she state if she still has GI bleeding, she will go to ER immediately. (2) GI bleeding pt's HGB is stable. pt told me she still had GI bleeding at her morning bowel movement.pt requested AMA and left hospital. I clearly explained to pt the medical risk of AMA and possible financial responsibility from AMA. pt state she understood all risks, she state if she still has GI bleeding, she will go to ER immediately. pt had colonoscopy done at the afternoon but pt refused to have EGD per surgeon told me. Surgeon report she did not find acute bleeding site in pt's colonoscopy but did find pt has many diverticulosis. (3) Diabetes pt's A1C is 10.6. pt refused to have insulin at home per she told me. pt signed AMA and left hospital. advise pt followup her PCP closely to manage her diabetes (4) HTN (hypertension) stable (5) Tachycardia with heart rate 100-120 beats per minute resolved/stable. (6) History of COPD stable (7) Currently smokes tobacco pt took Chantix (8) Obesities, morbid advise pt loss of weight (9) Anxiety and depression stable - ALLERGIES Allergies/Adverse Reactions: Allergies Allergy/AdvReac Type Severity Reaction Status Date / Time atenolol Allergy Anaphylaxis Verified 06/27/17 13:46 clonidine Allergy Hives Verified 06/27/17 13:46 metformin AdvReac GI symptoms Verified 06/27/17 13:46 - MEDICATIONS Home Medications: Ambulatory Orders Medication Instructions Recorded Confirmed Aspirin [Aspirin EC] 81 mg PO QPM 06/27/17 04/15/19 Furosemide 40 mg PO DAILY 06/27/17 04/15/19 Losartan [Cozaar] 100 mg PO DAILY 06/27/17 04/15/19 Multivitamin [Multiple Vitamins] 1 tab PO DAILY 06/27/17 04/15/19 Spironolactone 25 mg PO DAILY 06/27/17 04/15/19 dilTIAZem HCl [Diltiazem ER] 180 mg PO BID 06/27/17 04/15/19 Bupropion HCl [Bupropion Xl] 150 mg PO DAILY 04/15/19 04/15/19 SITagliptin [Januvia] 100 mg PO QPM 04/15/19 04/15/19 Varenicline Tartrate [Chantix] 1 mg PO BID 04/15/19 04/15/19 - PHYSICAL EXAM AT DISCHARGE General Appearance: positive: No acute distress, Alert. negative: Lethargic Eyes Bilateral: positive: Normal inspection, PERRL, EOMI, No lid inflammation ENT: positive: ENT inspection nml, Pharynx nml, No signs of dehydration. negative: Purulent nasal drainage Neck: positive: Nml inspection, Thyroid nml, No JVD, Trachea midline. negative: Thyromegaly, Lymphadenopathy (R), Lymphadenopathy (L), Stiff neck, Tracheal deviation Respiratory: positive: Chest non-tender, No respiratory distress. negative: Wheezes, Rales, Rhonchi Cardiovascular: positive: Regular rate & rhythm, No murmur, No gallop, Irregularly irregular. negative: Extrasystoles, Tachycardia, Bradycardia, JVD present, Systolic murmur, Diastolic murmur Peripheral Pulses: positive: 2+ Abdomen: positive: Non-tender, No organomegaly, Nml bowel sounds. negative: Tenderness, Guarding, Rebound Back: positive: Nml inspection. negative: CVA tenderness (R), CVA tenderness (L) Skin: positive: Color nml, No rash, Warm, Dry. negative: Cyanosis, Diaphoresis, Pallor Extremities: positive: Non-tender, Full ROM, Nml appearance. negative: Calf tenderness, Jovi's sign/cords Neurologic/Psychiatric: positive: Oriented x3, Motor nml, Sensation nml, Mood/affect nml. negative: Weakness, Sensory loss, Facial droop, Slurred/abnml speech, Depressed mood/affect - LABS Result Diagrams: 04/16/19 15:14 04/16/19 04:45 - SEPSIS Current Stage of Sepsis: Ruled out - FOLLOW UP Follow Up: you really want to go to home. Surgeon Dr. Elizabeth and me advise you stay hospital, we will monitor her closely, since you still complain you have GI bleeding on today. Dr. Elizabeth did colonoscopy for you today and you declined to have EGD on today. you was informed in your colonoscopy result, you was found you has no acute bleed site but you has many of diverticulosis which could cause your bleeding. you was advised if you continue to have GI bleeding, we might transfer you to another hospital for high level of care. But you refused to stay hospital any more. the all risks of AMA was explained to you. You stated you understood it. you still signed AMA and left hospital. - TIME SPENT Time Spent in Discharge (Minutes): 50"
== END 2019-04-16 17:38 | disposition left against medical advice (07) ==
LOC: ED 13:40 → MS2 15:40
PROVIDERS: ADMIT Nurse Practitioner Gerontology; ATTEND Nurse Practitioner Gerontology
PROC: 0DJD8ZZ Inspection of Lower Intestinal Tract, Via Natural or Artificial Opening Endoscopic (ICD-10-PCS; principal; 2019-04-16 15:30)
DX: K57.31 Diverticulosis of large intestine without perforation or abscess with bleeding (principal); R00.0 Tachycardia, unspecified; K64.8 Other hemorrhoids; K63.5 Polyp of colon; Z53.20 Procedure and treatment not carried out because of patient's decision for unspecified reasons; I11.0 Hypertensive heart disease with heart failure; I50.9 Heart failure, unspecified; J43.9 Emphysema, unspecified; G47.30 Sleep apnea, unspecified; E11.65 Type 2 diabetes mellitus with hyperglycemia; F41.0 Panic disorder [episodic paroxysmal anxiety]; F17.210 Nicotine dependence, cigarettes, uncomplicated; E66.01 Morbid (severe) obesity due to excess calories; F32.9 Major depressive disorder, single episode, unspecified; I99.9 Unspecified disorder of circulatory system; Z99.81 Dependence on supplemental oxygen; Z68.41 Body mass index [BMI] 40.0-44.9, adult; Z79.82 Long term (current) use of aspirin; Z79.899 Other long term (current) drug therapy; Z79.84 Long term (current) use of oral hypoglycemic drugs; Z86.79 Personal history of other diseases of the circulatory system
CPT/HCPCS: 36415; 45378; 71045; 80048; 80053; 81001; 83036; 83690; 85014; 85018; 85025; 85610; 85730; 86850; 86900; 86901; 96374; 99284; 99285; A9270; G0378; J7120; 87086